=== PATIENT | male | born 2000 | race Caucasian/White ===

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

== ENCOUNTER → 2020-07-16 07:42 | Outpatient (CLI) | payer OTHER, SELFPAY ==
--- NOTE | 2020-07-16 07:49 | US_ITS ---
PROCEDURE: US ABDOMEN COMPLETE CLINICAL INDICATION: ABN LIVER FUNCTION COMPARISON: No exams were available for comparison FINDINGS: PANCREAS: Unremarkable. No obvious mass or abnormal fluid collection. No ductal dilatation LIVER: Diffuse increased echogenicity of the liver with poor through transmission of sound consistent with hepatic steatosis. No focal liver lesion demonstrated. There is appropriate direction of blood flow within non dilated portal vein. RIGHT KIDNEY: Unremarkable. Normal size and echogenicity. No hydronephrosis LEFT KIDNEY: Unremarkable. Normal size and echogenicity. No hydronephrosis GALLBLADDER: No gallstones, gallbladder wall thickening, pericholecystic fluid, or biliary dilatation. Common bile duct is 3 mm AORTA: No evidence of aneurysmal dilatation. SPLEEN: Unremarkable. Normal size and echogenicity ASCITES: None demonstrated. IMPRESSION: Fatty liver otherwise negative abdominal ultrasound Dictated by: Brandyn Zuniga MD 07/16/2020 17:21 Brandyn Zuniga MD in [place] 07/16/2020 17:21
== END ==
PROVIDERS: PCP Nurse Practitioner Family; Visit Provider Nurse Practitioner Family
DX: R94.5 Abnormal results of liver function studies (principal)
CPT/HCPCS: 76700

== ENCOUNTER → 2020-09-12 08:10 | Outpatient (CLI) | payer OTHER, SELFPAY ==
[2020-09-12 09:08] LABS: Basophils # 0.1 K/mm3 (0-0.2); Basophils % 0.6 % (0.1-2.0); Eosinophils # 0.3 K/mm3 (0.0-0.4); Eosinophils % 2.8 % (0.1-12.0); Hematocrit 48.5 % (42.0-52.0); Hemoglobin 15.8 g/dL (14.1-18.0); Lymphocytes # 2.8 K/mm3 (0.7-4.5); Lymphocytes % 28.8 % (10-50); Mean Corpuscular HGB Conc 32.6 g/dL (31.8-35.4); Mean Corpuscular Hemoglobin 29.3 pg (27.0-31.2); Mean Corpuscular Volume 89.9 fl (80-94); Mean Platelet Volume 8.3 fl (7.4-10.4); Monocytes # 0.7 K/mm3 (0.1-1.0); Monocytes % 6.9 % (1.7-9.3); Neutrophils # 5.9 K/mm3 (1.8-7.8); Neutrophils % 60.9 % (37.0-80.0); Platelet Count 257 K/mm3 (142-424); Red Blood Count 5.39 M/mm3 (4.60-6.20); Red Cell Distribution Width 13.5 % (11.5-17.5); White Blood Count 9.7 K/mm3 (4.8-10.8)
[2020-09-12 09:14] LABS: Chloride 105 mmol/L (98-107); Potassium 4.3 mmoL/L (3.5-5.1); Sodium 140 mmol/L (136-145)
[2020-09-12 09:16] LABS: Blood Urea Nitrogen 25 mg/dl (9-20); Estimated Glomerular Filt Rate 107 ml/min (>60); GFR (African American) 129 ML/MIN (>60)
[2020-09-12 09:17] LABS: Alanine Aminotransferase 110 U/L (12-78); Albumin Level 4.4 g/dl (3.5-5.0); Albumin/Globulin Ratio 1.1 (1.1-1.8); Alkaline Phosphatase 64 U/L (38-126); Anion Gap 15.3 mEq/L (5-15); Aspartate Amino Transferase 53 U/L (17-59); Bilirubin,Total 0.6 mg/dl (0.2-1.3); Calcium 9.5 mg/dl (8.4-10.2); Carbon Dioxide 24 mmol/L (22.0-30.0); Glucose 108 mg/dl (74-100); Iron 140 ug/dL (49-181); Total Protein,Serum 8.4 g/dl (6.3-8.2)
[2020-09-12 09:26] LABS: Total Iron Binding Capacity 299 ug/dL (261-462)
[2020-09-12 13:31] LABS: INR 1.05 (0.9-1.1); Prothrombin Time 11.6 seconds (9.4-11.8)
[2020-09-13 10:17] LABS: Ceruloplasmin 28.6 mg/dL (16.0-31.0); Immunoglobulin A, Qn 284 mg/dL (90-386); Immunoglobulin G, Qn 1872 mg/dL (603-1613)
[2020-09-13 10:30] LABS: Immunoglobulin M, Qn 138 mg/dL (20-172)
[2020-09-13 20:56] LABS: Actin (Smooth Muscle) Antibody 9 Units (0-19); Deamidated Gliadin Abs, IgA 11 units (0-19); Deamidated Gliadin Abs, IgG 4 units (0-19); Liver-Kidney Microsomal Ab <1.0 Units (0.0-20.0); Mitochondrial (M2) Antibody <20.0 Units (0.0-20.0); Tissue Transglutaminase IgA Ab <2 U/mL (0-3); Tissue Transglutaminase IgG Ab 5 U/mL (0-5)
[2020-09-16 07:57] LABS: Angiotensin Converting Enzyme 121 U/L (14-82); Endomysial IgA Antibody Negative (Negative)
[2020-09-17 09:22] LABS: Reticulin IgA Antibody Negative titer (Neg:<1:2.5)
[2020-09-17 14:46] LABS: Phenotype (PI) MS (.)
[2020-09-17 22:08] LABS: Alpha-1-Antitrypsin 121 mg/dL (95-164)
[2020-09-19 14:20] LABS: ALT (SGPT) P5P 101 IU/L (0-55); AST (SGOT) P5P 49 IU/L (0-40); Alpha 2-Macroglobulins, Qn 157 mg/dL (110-276); Apolipoprotein A-1 137 mg/dL (101-178); Bilirubin, Total 0.3 mg/dL (0.0-1.2); Cholesterol, Total 195 mg/dL (100-199); Fibrosis Score 0.07 (0.00-0.21); GGT 50 IU/L (0-65); Glucose 99 mg/dL (65-99); Haptoglobin 148 mg/dL (17-317); Steatosis Score 0.63 (0.00-0.30); Triglycerides 111 mg/dL (0-149)
[2020-10-03 14:00] LABS: Antinuclear Antibodies (ANA) Negative
== END ==
PROVIDERS: Visit Provider Nurse Practitioner Family
DX: R94.5 Abnormal results of liver function studies (principal); K76.0 Fatty (change of) liver, not elsewhere classified
CPT/HCPCS: 36415; 80053; 81256; 82103; 82104; 82164; 82390; 82784; 83516; 83540; 83550; 85025; 85610; 86038; 86255; 86256; 86376

== ENCOUNTER 2020-10-27 14:56 | Emergency (ER) | payer OTHER, SELFPAY ==
[2020-10-27 15:05] VITALS: BP 155/103; PULSE 108; RESP 20; TEMP 36.9; O2SAT 96; BMI 43.0
--- NOTE | 2020-10-27 15:22 | HMH.EDUTC ---
[facility] [place] Clinical Impression: Exposure to COVID-19 virus Disposition: Home, Self-Care Condition on Discharge: Good Instructions: Preventing the Spread of Coronavirus Discharge Instructions Additional Instructions: Drink plenty of fluids. Take tylenol for pain or fever. Return if you begin to have difficulty breathing. Follow up with your regular doctor. GO TO THE ER FOR ANY WORSENING SYMPTOMS Referrals: Yola Umaña [Primary Care Provider] - Time of Disposition: 15:26 Medical Decision Making - Medical Records Medical records reviewed: No: I reviewed the patient's medical records. - Marty Inquiry Pt receiving controlled substance: No [facility] [place] - General Stated complaint: covid test Time Seen by Provider: 10/27/20 15:22 - History of Present Illness Provider Complaint: His girlfriend tested positive for covid this morning. He denies any symptoms, but he has been around her a lot recently. - Related Data Previous Rx's Medication Instructions Recorded Ibuprofen [Ibuprofen 600mg 600 mg PO Q6HP PRN #30 tab 11/13/19 Tablet] Allergies Allergy/AdvReac Type Severity Reaction Status Date / Time No Known Allergies Allergy Verified 02/03/18 21:38 [facility] History - Hepatitis A Screen Attestation statement:: This patient has been screened for Hepatitis A risk factors. I have reviewed the patient's past medical history: Yes Medical History: Denies:: Cancer, Diabetes Mellitus Type 1, Diabetes Mellitus Type 2, Internal Pacemaker, MRSA Laterality Cases: Bilateral: Arthroscopy Knee, Other Other Surgeries: Yes: Appendectomy. No: Pacemaker Amputation: No Fractures: No - Social History Smoking Status: Unknown if ever smoked Tobacco Type: smokeless tobacco Alcohol Intake: never Occupational Status: employed Housing: house Household Members: family Family Hx:: No significant family history ROS Obtained: Yes All systems reviewed & no additional complaints - Constitutional Constitutional: Reports system reviewed and no additional complaints, except as docu - Eyes Eyes: Reports system reviewed and no additional complaints, except as docu - ENT Ears, Nose, Mouth, and Throat: Reports system reviewed and no additional complaints, except as docu - Cardiovascular Cardiovascular: Reports system reviewed and no additional complaints, except as docu - Respiratory Respiratory: Yes system reviewed and no additional complaints, except as docu - Gastrointestinal Gastrointestingal: Reports: system reviewed and no additional complaints, except as docu Physical Exam - General General appearance: alert, in no apparent distress - Head Head exam: atraumatic, normocephalic, normal inspection - Eye Eye exam: Present: normal appearance, PERRL, EOMI - ENT ENT exam: Present: normal exam, normal oropharynx, mucous membranes moist, TM's normal bilaterally, normal external ear exam - Neck Neck exam: Present: normal inspection, full ROM, trachea midline. Absent: meningismus, lymphadenopathy - Chest Chest inspection: Present: normal inspection, symmetric chest wall rise. Absent: tenderness - Respiratory Respiratory exam: Present: normal lung sounds bilaterally. Absent: respiratory distress - Cardiovascular Cardiovascular exam: Present: regular rate, normal rhythm. Absent: JVD - Abdominal Exam Abdominal exam: Present: soft, normal bowel sounds. Absent: distention, tenderness, guarding - Extremities Exam Extremities exam: Present: normal inspection, full ROM, normal capillary refill. Absent: calf tenderness - Back Exam Back exam: Present: normal inspection. Absent: tenderness - Neurological Exam Neurological exam: Present: alert, oriented X3 - Psychiatric Psychiatric exam: Present: normal affect, normal mood - Skin Skin exam: Present: warm, dry, intact, normal color - Lymphatic Lymphatic Findings: no adenopathy
[2020-10-27 15:38] VITALS: BP 155/103; PULSE 108; RESP 20; TEMP 36.9; O2SAT 96
[2020-10-29 15:45] LABS: Covid-19 Nasal PCR Sendout Lex Not Detected
== END 2020-10-27 15:40 | disposition home or self-care (01) ==
PROVIDERS: Emergency Provider Nurse Practitioner Family; PCP Nurse Practitioner Family
DX: Z20.828 Contact with and (suspected) exposure to other viral communicable diseases (principal)
CPT/HCPCS: 99201; U0004

== ENCOUNTER → 2022-10-04 09:40 | Outpatient (CLI) | payer OTHER, SELFPAY ==
[2022-10-04 18:59] LABS: Alanine Aminotransferase 72 U/L (12-78); Albumin Level 4.7 g/dl (3.5-5.0); Albumin/Globulin Ratio 1.5 (1.1-1.8); Alkaline Phosphatase 102 U/L (38-126); Anion Gap 14.6 mEq/L (5-15); Aspartate Amino Transferase 48 U/L (17-59); Bilirubin,Total 0.4 mg/dl (0.2-1.3); Blood Urea Nitrogen 18 mg/dl (9-20); Calcium 9.8 mg/dl (8.4-10.2); Carbon Dioxide 31 mmol/L (22.0-30.0); Chloride 100 mmol/L (98-107); Chol/HDL Ratio 5.3 (1-3.5); Cholesterol 232 mg/dl (140-200); Estimated Glomerular Filt Rate 105 ml/min (>60); GFR (African American) 127 ML/MIN (>60); Globulin 3.1 g/dL (1.3-3.2); Glucose 107 mg/dl (74-100); HDL Cholesterol 44 mg/dl (40-60); Potassium 4.6 mmoL/L (3.5-5.1); Sodium 141 mmol/L (136-145); Total Protein,Serum 7.8 g/dl (6.3-8.2); Triglycerides 125 mg/dl (30-150); VLDL Cholesterol 25 mg/dL (0-40)
[2022-10-04 19:10] LABS: Direct LDL Cholesterol 149.38 mg/dL (100-129)
[2022-10-04 19:15] LABS: Free T4 (Free Thyroxine) 1.08 ng/dl (0.78-2.19)
[2022-10-04 19:25] LABS: Basophils # 0.1 K/mm3 (0-0.2); Basophils % 0.8 % (0.1-2.0); Eosinophils # 0.2 K/mm3 (0.0-0.4); Eosinophils % 2.2 % (0.1-12.0); Hematocrit 50.6 % (42.0-52.0); Hemoglobin 15.9 g/dL (14.1-18.0); Lymphocytes % 35.4 % (10-50); Mean Corpuscular HGB Conc 31.5 g/dL (31.8-35.4); Mean Corpuscular Hemoglobin 29.5 pg (27.0-31.2); Mean Corpuscular Volume 93.6 fl (80-94); Mean Platelet Volume 10.3 fl (7.4-10.4); Monocytes # 0.6 K/mm3 (0.1-1.0); Monocytes % 7.2 % (1.7-9.3); Neutrophils # 4.6 K/mm3 (1.8-7.8); Neutrophils % 54.4 % (37.0-80.0); Platelet Count 294 K/mm3 (142-424); White Blood Count 8.5 K/mm3 (4.8-10.8)
[2022-10-04 19:30] LABS: Thyroid Stimulating Hormone 3.33 uIU/mL (0.465-4.68)
== END ==
PROVIDERS: PCP Family Medicine; Visit Provider Family Medicine
DX: Z00.00 Encounter for general adult medical examination without abnormal findings (principal); I10 Essential (primary) hypertension; R53.83 Other fatigue
CPT/HCPCS: 80053; 80061; 84439; 84443; 85025

== ENCOUNTER → 2023-05-19 23:09 | Outpatient (CLI) | payer OTHER, SELFPAY ==
[2023-05-19 16:26] LABS: Basophils % 0.5 % (0.1-2.0); Eosinophils # 0.2 K/mm3 (0.0-0.4); Eosinophils % 2.1 % (0.1-12.0); Hematocrit 45.7 % (42.0-52.0); Lymphocytes # 3.3 K/mm3 (0.7-4.5); Lymphocytes % 35.4 % (10-50); Mean Corpuscular HGB Conc 32.8 g/dL (31.8-35.4); Mean Corpuscular Hemoglobin 29.4 pg (27.0-31.2); Mean Corpuscular Volume 89.8 fl (80-94); Mean Platelet Volume 10.2 fl (7.4-10.4); Monocytes # 0.6 K/mm3 (0.1-1.0); Monocytes % 6.5 % (1.7-9.3); Neutrophils # 5.3 K/mm3 (1.8-7.8); Neutrophils % 55.5 % (37.0-80.0); Platelet Count 264 K/mm3 (142-424); Red Blood Count 5.09 M/mm3 (4.60-6.20); White Blood Count 9.5 K/mm3 (4.8-10.8)
[2023-05-19 16:31] LABS: Alanine Aminotransferase 77 U/L (12-78); Albumin Level 4.5 g/dl (3.5-5.0); Albumin/Globulin Ratio 1.5 (1.1-1.8); Alkaline Phosphatase 79 U/L (38-126); Anion Gap 17.6 mEq/L (5-15); Aspartate Amino Transferase 53 U/L (17-59); Bilirubin,Total 0.4 mg/dl (0.2-1.3); Blood Urea Nitrogen 21 mg/dl (9-20); Calcium 9.1 mg/dl (8.4-10.2); Carbon Dioxide 25 mmol/L (22.0-30.0); Chloride 101 mmol/L (98-107); Chol/HDL Ratio 4.5 (1-3.5); Cholesterol 212 mg/dl (140-200); Estimated Glomerular Filt Rate 105 ml/min (>60); GFR (African American) 127 ML/MIN (>60); Globulin 3.1 g/dL (1.3-3.2); Glucose 107 mg/dl (74-100); HDL Cholesterol 47 mg/dl (40-60); Potassium 4.6 mmoL/L (3.5-5.1); Sodium 139 mmol/L (136-145); Total Protein,Serum 7.6 g/dl (6.3-8.2); Triglycerides 115 mg/dl (30-150); VLDL Cholesterol 23 mg/dL (0-40)
[2023-05-19 16:41] LABS: Direct LDL Cholesterol 126.68 mg/dL (100-129)
[2023-05-19 18:20] LABS: Hemoglobin A1C 5.7 % (4.0-6.0)
== END ==
PROVIDERS: PCP Nurse Practitioner Family; Visit Provider Nurse Practitioner Family
DX: E78.5 Hyperlipidemia, unspecified (principal); I10 Essential (primary) hypertension; Z79.899 Other long term (current) drug therapy
CPT/HCPCS: 80053; 80061; 83036; 85025

== ENCOUNTER 2023-07-18 09:57 | Emergency (ER) | payer OTHER, SELFPAY ==
[2023-07-18] VITALS (7 sets, daily range): BP systolic 72–108; BP diastolic 44–68; PULSE 68–82; RESP 20–23; TEMP 36.7–36.8; O2SAT 92–98; BMI 45.9
--- NOTE | 2023-07-18 10:24 | XR_ITS ---
FINAL REPORT CLINICAL HISTORY: partial amputation COMPARISON: None FINDINGS: RIGHT HAND Three views demonstrate a partial amputation of the tip of the fifth finger, with fragmentation of the tip of the distal phalanx associated with a well-defined soft tissue defect. The visualized joint spaces are normally aligned. No other evidence of fracture is identified. IMPRESSION: Partial amputation of the tip of the fifth finger, with fragmentation of the tip of the distal phalanx and a well-defined soft tissue defect. Reviewed, Interpreted and Dictated by Leonardo Vincent MD Transcribed by Christine Valentino Authenticated and [facility]
--- NOTE | 2023-07-18 10:40 | PC.NURSE ---
rad at bedside
--- NOTE | 2023-07-18 10:56 | HMH.EDGENADL ---
Discharge Plan Disposition Patient Disposition: Xfer Short-Term Hosp Condition: Good Prescriptions Prescriptions: No Action lisinopril 20 mg tablet 20 mg PO DAILY Qty: 90 1RF vitamin E (dl, acetate) 180 mg (400 unit) capsule 180 mg PO DAILY Zyrtec 10 mg capsule 10 mg PO DAILY PRN Alpha Lipoic Sustain-Biotin 300 mg- 330 mcg tablet,IR,delayed rel,biphasic 1 tab PO DAILY atorvastatin 10 mg tablet 10 mg PO DAILY Qty: 30 2RF Referrals Follow up/Referrals: Parker Xiao MD [Primary Care Provider] - See instructions Activity Restrictions/Add. Instructions Additional Instructions/Restrictions: You were evaluated in the emergency department today. Please proceed directly to [facility]. Here is their address. [address] [place] [address], [address] Floor, [place] [address] Clinical Impressions Clinical Impression: Partial traumatic amputation of right little finger through phalanx Qualifiers: Encounter type: initial encounter Qualified Code(s): S68.626A - Partial traumatic transphalangeal amputation of right little finger, initial encounter Instructions Patient Instructions: DI for Laceration Repair Discharge ED Provider: Kelli Bear General Adult HPI General Chief complaint: Wound/Laceration Stated complaint: [id number] right pinkie lacaration Time Seen by Provider: 07/18/23 10:24 Mode of Arrival: Family Vehicle Source of Information: Patient Limitations: No Limitations Description of Symptoms (Recalled from ER Triage Doc. by RN): Pt c/o pain and smashed tip of R hand little finger. States he was working on a hay-roller and pulled the bar out and it got smashed in there . Denies any other injuries from this incident. He reports he can move and feel everything to his hand and fingers. The very tip of the finger seems to be missing as well as the nail, but there is a nail bed present. [employer] and radial pulse are WNL. Bleeding controlled. History of Present Illness HPI narrative: This patient is a 23-year-old male with a history of hypertension, hyperlipidemia, and obesity presenting to the emergency department for evaluation with concern for a wound to the tip of his right hand little finger. He is right-handed. He was working on a roller, when it got smashed. He has a crush injury/amputation through the distal phalanx involving the nail of the right little finger. No other injuries noted at this time. He states that his last tetanus shot was within the last 2 years. He was well prior to this. Related Data Home Medications Medication Instructions Recorded Confirmed cetirizine 10 mg capsule (Zyrtec) 10 mg PO DAILY PRN 10/04/22 05/19/23 vitamin E (dl, acetate) 180 mg 180 mg PO DAILY 10/04/22 05/19/23 (400 unit) capsule alpha lipoic acid ER 300 mg-biotin 1 tab PO DAILY 05/19/23 05/19/23 330 mcg tablet,immed-extend release (Alpha Lipoic Sustain-Biotin) Previous Rx's Medication Instructions Recorded lisinopril 20 mg tablet 20 mg PO DAILY #90 tabs 05/19/23 atorvastatin 10 mg tablet 10 mg PO DAILY #30 tabs 05/20/23 Allergies Allergy/AdvReac Type Severity Reaction Status Date / Time No Known Allergies Allergy Verified 05/19/23 09:02 [facility] Disclaimer: The information contained in this section may have been updated after the patient was seen, as this information can be updated by other users. Medical History Elevated liver enzymes Surgical History H/O knee surgery History of appendectomy Family History Grandmother Substance abuse Father Hypertension Diabetes Other Coronary artery disease Social History Smoking Status: Never smoker alcohol intake: never substance use type: denies use current o
--- NOTE | 2023-07-18 11:03 | PC.NURSE ---
placed call to [facility] for transfer
--- NOTE | 2023-07-18 11:24 | PC.NURSE ---
on phone with
== END 2023-07-18 12:14 | disposition short-term general hospital (02) ==
PROVIDERS: Emergency Provider Emergency Medicine; PCP Family Medicine
DX: S68.626A Partial traumatic transphalangeal amputation of right little finger, initial encounter (principal); I10 Essential (primary) hypertension; E78.5 Hyperlipidemia, unspecified; E66.9 Obesity, unspecified; W23.0XXA Caught, crushed, jammed, or pinched between moving objects, initial encounter; Z23 Encounter for immunization
CPT/HCPCS: 73130; 90715; 96365; 96372; 96375; 99285; J0690; J2405

== ENCOUNTER → 2023-08-19 16:53 | Outpatient (CLI) | payer OTHER, SELFPAY ==
[2023-08-19 16:47] LABS: Alanine Aminotransferase 80 U/L (12-78); Albumin Level 4.7 g/dl (3.5-5.0); Albumin/Globulin Ratio 1.4 (1.1-1.8); Alkaline Phosphatase 80 U/L (38-126); Anion Gap 14.8 mEq/L (5-15); Aspartate Amino Transferase 56 U/L (17-59); Bilirubin,Total 0.6 mg/dl (0.2-1.3); Blood Urea Nitrogen 18 mg/dl (9-20); Calcium 9.5 mg/dl (8.4-10.2); Carbon Dioxide 25 mmol/L (22.0-30.0); Chloride 105 mmol/L (98-107); Chol/HDL Ratio 5.2 (1-3.5); Cholesterol 215 mg/dl (140-200); Estimated Glomerular Filt Rate 104 ml/min (>60); GFR (African American) 125 ML/MIN (>60); Globulin 3.4 g/dL (1.3-3.2); Glucose 100 mg/dl (74-100); HDL Cholesterol 41 mg/dl (40-60); Potassium 4.8 mmoL/L (3.5-5.1); Sodium 140 mmol/L (136-145); Total Protein,Serum 8.1 g/dl (6.3-8.2); Triglycerides 119 mg/dl (30-150); VLDL Cholesterol 24 mg/dL (0-40)
[2023-08-19 16:58] LABS: Direct LDL Cholesterol 123.18 mg/dL (100-129)
== END ==
PROVIDERS: PCP Nurse Practitioner Family; Visit Provider Nurse Practitioner Family
DX: E78.5 Hyperlipidemia, unspecified (principal); I10 Essential (primary) hypertension
CPT/HCPCS: 80053; 80061

== ENCOUNTER 2024-12-14 14:13 | Emergency (ER) | payer OTHER, SELFPAY ==
[2024-12-14 14:14] VITALS: BP 163/92; PULSE 108; RESP 18; TEMP 36.9; O2SAT 97; BMI 44.4
--- NOTE | 2024-12-14 14:48 | [facility].EDGENADL ---
Discharge Plan Disposition Patient Disposition: Home, Self-Care Condition: Good Prescriptions Prescriptions: No Action vitamin E (dl, acetate) 180 mg (400 unit) capsule 180 mg PO DAILY Zyrtec 10 mg capsule 10 mg PO DAILY PRN Alpha Lipoic Sustain-Biotin 300 mg- 330 mcg tablet,IR,delayed rel,biphasic 1 tab PO DAILY atorvastatin 20 mg tablet 20 mg PO DAILY Qty: 30 3RF lisinopril 10 mg tablet See Rx Instructions .ROUTE .COMPLEX Qty: 30 2RF Dose Instruction: TAKE 1 TABLET BY MOUTH EVERY DAY Rx Instructions: TAKE 1 TABLET BY MOUTH EVERY DAY Referrals Follow up/Referrals: Perla Bolanos APRN [Primary Care Provider] - See instructions Activity Restrictions/Add. Instructions Additional Instructions/Restrictions: Please call and make an appointment with my eye doctor here in [place] to be reevaluated within 24 to 48 hours. Please utilize the ointment that I gave you twice a day. Follow-up with your PCP if you have any new or worsening symptoms or return to the ER as needed. Clinical Impressions Clinical Impression: Corneal foreign body Qualifiers: Encounter type: initial encounter Laterality: right Qualified Code(s): T15.01XA - Foreign body in cornea, right eye, initial encounter Print Language Print Language: Greek Discharge ED Provider: Mata Schwartz General Adult HPI <CHRIS Huerta - Last Filed: 12/14/24 15:12> General Chief complaint: Eye Problems Stated complaint: piece of metal in right eye Time Seen by Provider: 12/14/24 14:23 Mode of Arrival: Ambulatory Source of Information: Patient Limitations: No Limitations Description of Symptoms (Recalled from ER Triage Doc. by RN): c/o right eye irritation after working on a car yesterday and having dust/metal fall in his eye History of Present Illness HPI narrative: Patient presents for evaluation of a right foreign body. 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 He tried to flush his eye however the symptoms persist and are present today. He denies any loss of vision no painful extraocular movements. Related Data Home Medications ?Medication ?Instructions ?Recorded ?Confirmed cetirizine 10 mg capsule (Zyrtec) 10 mg PO DAILY PRN 10/04/22 08/19/23 vitamin E (dl, acetate) 180 mg 180 mg PO DAILY 10/04/22 08/19/23 (400 unit) capsule alpha lipoic acid ER 300 mg-biotin 1 tab PO DAILY 05/19/23 08/19/23 330 mcg tablet,immed-extend release (Alpha Lipoic Sustain-Biotin) Previous Rx's ?Medication ?Instructions ?Recorded atorvastatin 20 mg tablet 20 mg PO DAILY #30 tabs 08/13/24 lisinopril 10 mg tablet See Rx Instructions .Route 10/24/24 .COMPLEX #30 tabs Allergies Allergy/AdvReac Type Severity Reaction Status Date / Time No Known Allergies Allergy Verified 08/19/23 08:17 COUNT INCLUDES THE [facility] <CHRIS Huerta - Last Filed: 12/14/24 15:12> COUNT INCLUDES THE [facility] Disclaimer: The information contained in this section may have been updated after the patient was seen, as this information can be updated by other users. Medical History Elevated liver enzymes Finger amputee Surgical History H/O knee surgery History of appendectomy Family History Grandmother Substance abuse Father Hypertension Diabetes Other Coronary artery disease Social History Smoking Status: Never smoker alcohol intake: never substance use type: denies use current occupational status: employed and other Travel in the last 8 weeks: None household members: family housing: house current occupational exposures/hazards: No caffeine: Yes Have you lived/traveled outside [place] in past 30 days?: No Contact w/someone who lives/traveled outside [place] past 30 days?: No Exposure to someone with infectious disease in past 14 days?: No Do you have a fever (greater than 100.4 F or 38 C)?: No Have you tested positive for COVID-19: No Exposed to someone with COVID-19 in past 14 days?: No Do you have a sore throat?: No Do you have a cough?: No Do you have any weakness?: No Do you have any diarrhea?: No Are you experiencing any unusual bleeding?: No Do you have any muscle aches/pain?: No Do you have any abdominal pain?: No Are you experiencing loss of taste or smell?: No Other Medical History Have you received the Flu Vaccine for this season: No Have you received the Pneumonia Vaccine: No <CHRIS Huerta - Last Filed: 12/14/24 15:12> ROS Obtained: Yes Systems reviewed as appropriate & no additional complaints except as documented Physical Exam <CHRIS Huerta - Last Filed: 12/14/24 15:12> General General appearance: alert and in no apparent distress Respiratory Respiratory exam: Present normal lung sounds bilaterally Cardiovascular Cardiovascular exam: Present regular rate Neurological Exam Neurological exam: Present alert and oriented X3 Medical Decision Making <CHRIS Huerta - Last Filed: 12/14/24 15:12> Medical Records Screening: Per USPSTF and CDC recommendations, given the prevalence of disease in our region, it is our hospital?s policy to screen for HIV and viral Hepatitis for all patients aged 18 and over and those with ongoing risk factors. Marty Inquiry Pt receiving controlled substance: No Vital Signs: 12/14/24 14:14 12/14/24 14:58 Temperature 98.5 F 98.2 F Temperature Source Oral Oral Pulse Rate 78 Pulse Rate [Left Radial] 108 H Respiratory Rate 18 18 Blood Pressure 150/60 H Blood Pressure [Right Arm] 163/92 H Blood Pressure Mean [Right Arm] 115 Blood Pressure Source Automatic Cuff 02 Sat by Pulse Oximetry 97 Oxygen Delivery Method Room Air Room Air Medical Decision Narrative: In summary patient is a 24-year-old male who presents to the emergency department for evaluation of right corneal foreign body. Patient is hemodynamically stable with a blood pressure 163/92 but tachycardic on arrival to the 180s normal sinus rhythm on the bedside monitor satting at 97% on room air breathing 18 times a minute upon arrival, afebrile at 98.5. Physical exam reveals a metallic foreign body at approximately 9 PM in the right cornea.. Differential diagnosis includes corneal foreign body versus rust ring versus corneal ulceration etc. Initial workup will be conducted with exam under topical anesthesia.. Initial interventions include topical tetracaine. Initial workup performed by me and after topical anesthesia there is no fluorescein pooling anywhere except slightly around the foreign body at 9 PM the cornea. Utilizing an 18-gauge needle bevel the foreign body was lifted off.. Exam under slit lamp afterwards by Dr. Schwartz reveals that the foreign body is completely gone and no visible rust ring currently. Given this patient is appropriate for discharge with the prescription for erythromycin ointment applied and tube given to him and instructions to set up a follow-up appointment within 24 to 48 hours with ophthalmology. Patient given strict return precautions. <Mata Schwartz MD - Last Filed: 12/14/24 15:25> Vital Signs: 12/14/24 14:14 12/14/24 14:58 Temperature 98.5 F 98.2 F Temperature Source Oral Oral Pulse Rate 78 Pulse Rate [Left Radial] 108 H Respiratory Rate 18 18 Blood Pressure 150/60 H Blood Pressure [Right Arm] 163/92 H Blood Pressure Mean [Right Arm] 115 Blood Pressure Source Automatic Cuff 02 Sat by Pulse Oximetry 97 Oxygen Delivery Method Room Air Room Air Medical Decision Narrative: In summary patient is a 24-year-old male who presents to the emergency department for evaluation of right corneal foreign body. Patient is hemodynamically stable with a blood pressure 163/92 but tachycardic on arrival to the 180s normal sinus rhythm on the bedside monitor satting at 97% on room air breathing 18 times a minute upon arrival, afebrile at 98.5. Physical exam reveals a metallic foreign body at approximately 9 PM in the right cornea.. Differential diagnosis includes corneal foreign body versus rust ring versus corneal ulceration etc. Initial workup will be conducted with exam under topical anesthesia.. Initial interventions include topical tetracaine. Initial workup performed by me and after topical anesthesia there is no fluorescein pooling anywhere except slightly around the foreign body at 9 PM the cornea. Utilizing an 18-gauge needle bevel the foreign body was lifted off.. Exam under slit lamp afterwards by Dr. Schwartz reveals that the foreign body is completely gone and no visible rust ring currently. Given this patient is appropriate for discharge with the prescription for erythromycin ointment applied and tube given to him and instructions to set up a follow-up appointment within 24 to 48 hours with ophthalmology. Patient given strict return precautions. DUC attestation I was consulted by the DUC, and we discussed the complexity of problems being addressed. I approved the treatment and management plan for this patient's care in the emergency department, thus performing a substantial portion of the medical decision making. Mata Schwartz MD Tdap up-to-date. Discharged with erythromycin and follow-up with ophthalmology. Procedures <CHRIS Huerta - Last Filed: 12/14/24 15:12> Foreign Body Removal Description of foreign body: other (Metallic) Eye Exam/FB Removal Location: eye (R) Topical anesthetic used: tetracaine Fluorescein Stick(s) used: Yes Time Out performed: No Procedure performed under: direct visualization with magnification and slit-lamp Foreign body: metal Evidence of corneal penetration: No Technique: irrigation, cotton tip swab and needle Post-procedure medication: ophthalmic antibiotic Eye irrigated w/saline (#ccs): 10 Patient tolerated procedure: well Critical Care <CHRIS Huerta - Last Filed: 12/14/24 15:12> Critical Care Time Critical Care Time: No
[2024-12-14 14:58] VITALS: BP 150/60; PULSE 78; RESP 18; TEMP 36.8; O2SAT 98
== END 2024-12-14 15:04 | disposition home or self-care (01) ==
PROVIDERS: Emergency Provider Student in an Organized Health Care Education/Training Program; PCP Nurse Practitioner Family
DX: T15.01XA Foreign body in cornea, right eye, initial encounter (principal); W44.D9XA Other magnetic metal objects entering into or through a natural orifice, initial encounter; Y93.89 Activity, other specified; Y92.9 Unspecified place or not applicable
CPT/HCPCS: 99283

== ENCOUNTER 2024-12-21 17:22 | Outpatient (CLI) | payer OTHER, SELFPAY ==
[2024-12-21 16:18] LABS: Basophils # 0.1 K/mm3 (0-0.2); Basophils % 0.6 % (0.1-2.0); Eosinophils # 0.3 K/mm3 (0.0-0.4); Eosinophils % 2.8 % (0.1-12.0); Hemoglobin 15.1 g/dL (14.1-18.0); Lymphocytes # 3.3 K/mm3 (0.7-4.5); Lymphocytes % 35.9 % (10-50); Mean Corpuscular HGB Conc 32.1 g/dL (31.8-35.4); Mean Corpuscular Hemoglobin 29.3 pg (27.0-31.2); Mean Corpuscular Volume 91.1 fl (80-94); Mean Platelet Volume 11.8 fl (7.4-10.4); Monocytes # 0.8 K/mm3 (0.1-1.0); Monocytes % 8.9 % (1.7-9.3); Neutrophils # 4.8 K/mm3 (1.8-7.8); Neutrophils % 51.5 % (37.0-80.0); Platelet Count 236 K/mm3 (142-424); Red Blood Count 5.16 M/mm3 (4.60-6.20); Red Cell Distribution Width 12.4 % (11.5-17.5); White Blood Count 9.3 K/mm3 (4.8-10.8)
[2024-12-21 16:48] LABS: Albumin Level 4.6 g/dl (3.5-5.0); Chloride 102 mmol/L (98-107); Sodium 138 mmol/L (136-145)
[2024-12-21 16:49] LABS: Potassium 4.9 mmoL/L (3.5-5.1)
[2024-12-21 16:51] LABS: Alanine Aminotransferase 82 U/L (12-78); Albumin/Globulin Ratio 1.8 (1.1-1.8); Alkaline Phosphatase 72 U/L (38-126); Anion Gap 17.9 mEq/L (5-15); Aspartate Amino Transferase 61 U/L (17-59); Bilirubin,Total 0.6 mg/dl (0.2-1.3); Blood Urea Nitrogen 17 mg/dl (9-20); Carbon Dioxide 23 mmol/L (22.0-30.0); Cholesterol 119 mg/dl (140-200); Estimated Glomerular Filt Rate 118 ml/min (>60); GFR (African American) 143 ML/MIN (>60); Globulin 2.6 g/dL (1.3-3.2); Glucose 85 mg/dl (74-100); Total Protein,Serum 7.2 g/dl (6.3-8.2); Triglycerides 73 mg/dl (30-150); VLDL Cholesterol 15 mg/dL (0-40)
[2024-12-21 16:52] LABS: Chol/HDL Ratio 3.5 (1-3.5); HDL Cholesterol 34 mg/dl (40-60)
[2024-12-21 16:56] LABS: 25-OH Vitamin D, Total 19.6 ng/mL (30-100)
[2024-12-21 17:03] LABS: Direct LDL Cholesterol 67.09 mg/dL (100-129)
[2024-12-21 17:09] LABS: T4 (Thyroxine) 8.1 ug/dl (5.53-11.0)
[2024-12-21 17:11] LABS: Thyroid Stimulating Hormone 3.01 uIU/mL (0.465-4.68)
[2024-12-21 17:21] LABS: Hemoglobin A1C 5.9 % (4.0-6.0)
[2024-12-21 17:37] LABS: HIV Combo NEGATIVE (Negative)
[2024-12-21 17:51] LABS: Hepatitis C Ab Qual. W/ RFX NEGATIVE (Negative)
== END 2024-12-21 23:59 | disposition home or self-care (01) ==
LOC: LAB.DROPOF 17:22
PROVIDERS: PCP Nurse Practitioner Family; Visit Provider Nurse Practitioner Family
DX: Z00.00 Encounter for general adult medical examination without abnormal findings (principal); I10 Essential (primary) hypertension; E78.5 Hyperlipidemia, unspecified; R53.83 Other fatigue
CPT/HCPCS: 80053; 80061; 82306; 83036; 84436; 84443; 85025; 86803; 87389